=== PATIENT | male | born 1995 | race Caucasian/White ===

== ENCOUNTER 2024-03-02 04:19 | Emergency (ER) | payer SELFPAY ==
[~2024-03-02] VITALS: Ht 170.2 cm; Wt 74.0 kg
[2024-03-02 04:42] VITALS: O2SAT 99
[2024-03-02 04:45] VITALS: O2SAT 99
[2024-03-02] MEDS: ACETAMINOPHEN 325MG TABLET PO ONE (05:30)
[2024-03-02] MEDS: TETANUS, DIPHTHERIA, PERTUSSIS VAC/PF 0.5ML (>10YR OLD) IM ONE (05:30)
[2024-03-02] MEDS ORDERED: BO1 TP (06:07)
[2024-03-02 06:10] VITALS: BP 121/68; PULSE 83; RESP 16; TEMP 36.39180
== END 2024-03-02 06:40 | disposition home or self-care (01) ==
LOC: ER 04:19
DX: H57.11 Ocular pain, right eye (principal); S02.2XXA Fracture of nasal bones, initial encounter for closed fracture; Y04.0XXA Assault by unarmed brawl or fight, initial encounter
CPT/HCPCS: 12011; 70486; 73630; 90471; 90715; 99285